=== PATIENT | female | born 1975 | race Caucasian/White ===

== ENCOUNTER → 2019-09-22 | Outpatient (CLI) | payer BC ==
--- NOTE | 2019-09-22 12:28 | REP ---
MRI right foot: History: Right foot/heel pain rule out stress fracture. No comparison radiographs. Technique: Axial, sagittal, and coronal imaging planes were utilized. T1 and T2-weighted scans were included with and without fat saturation. MRI findings: Cortical and medullary bone signal intensity are normal within the calcaneus and talus. There is no evidence of calcaneal stress fracture. There is a tiny zone of marrow edema and subcortical cyst formation in the distal surface of the cuboid bone at the fifth metatarsal tarsal articulation. Tarsal bone signal intensity is otherwise normal. There is no evidence to suggest tarsal coalition. No ankle or subtalar joint effusion is appreciated. There is thickening and increased signal intensity in the proximal plantar fascia particularly at its proximal attachment to the calcaneus consistent with plantar fasciitis. There is some adjacent subcutaneous edema and a tiny amount of edema in the calcaneus at the fascial attachment is seen. The Achilles tendon is unremarkable. The other flexor tendons at the ankle appear intact. No extensor tendinopathy is appreciated. No soft tissue mass is appreciated. Impression: Findings consistent with moderate plantar fasciitis. No evidence of tarsal bone stress fracture. There is a tiny subcortical cyst in the distal surface of the cuboid with some adjacent marrow edema. Electronically Signed by Reece Brooks MD 09/22/2019 06:53 P
== END ==
LOC: M RAD 10:21
PROVIDERS: ATTEND Podiatrist Foot & Ankle Surgery
DX: M72.2 Plantar fascial fibromatosis (principal); M85.471 Solitary bone cyst, right ankle and foot